=== PATIENT | male | born 1960 | race African-American/Black ===

== ENCOUNTER 2019-05-14 10:22 | Emergency (ER) | payer MEDICAID ==
[~2019-05-14] VITALS: Ht 170.2 cm; Wt 68.0 kg
[2019-05-14 11:57] LABS: HEMATOCRIT. 22.4 % (42.0-52.0); HEMOGLOBIN. 7.4 g/dL (14.0-18.0); MEAN CORPUSCULAR HEMOGLOBIN 24.8 pg (28.0-32.0); MEAN CORPUSCULAR VOLUME 75.2 fL (80.0-94.0); MEAN PLATELET VOLUME 10.7 fl (7.4-10.4); PLATELET 148 x1000/uL (130-400); RED BLOOD CELL COUNT 2.98 mill/uL (4.7-6.1); RED CELL DISTRIBUTION WIDTH 14.7 % (11.6-14.6)
[2019-05-14 12:02] LABS: CLARITY URINE CLEAR (CLEAR); COLOR URINE YELLOW (YELLOW); KETONES URINE NEGATIVE (NEGATIVE); LEUKOCYTE ESTERASE URINE NEGATIVE (NEGATIVE); NITRITE URINE NEGATIVE (NEGATIVE); OCCULT BLOOD URINE NEGATIVE (NEGATIVE); PROTEIN URINE TRACE (NEGATIVE); SPECIFIC GRAVITY URINE 1.007 (1.005-1.030); UROBILINOGEN URINE 0.2 E.U./dL (0.2-1.0)
[2019-05-14 12:34] LABS: PLATELET ESTIMATE NORMAL
[2019-05-14 13:49] LABS: TOTAL IRON BINDING CAPACITY 242 ug/dL (250-450)
[2019-05-14 13:53] VITALS: BP 133/62
== END 2019-05-14 14:06 | disposition home or self-care (01) ==
LOC: ER 10:22
DX: D50.9 Iron deficiency anemia, unspecified (principal); N18.4 Chronic kidney disease, stage 4 (severe); N28.9 Disorder of kidney and ureter, unspecified
CPT/HCPCS: 36415; 80048; 81003; 83540; 83550; 99283

== ENCOUNTER 2019-06-04 09:56 | Inpatient (IN) | payer MEDICAID ==
[2019-06-04] VITALS (9 sets, daily range): BP systolic 122–180; BP diastolic 66–83
[~2019-06-04] VITALS: Ht 170.2 cm; Wt 65.8 kg
[2019-06-04 10:53] LABS: BASOPHILS % 0.4 % (0.0-2.0); EOSINOPHILS % 1.8 % (0.0-5.0); HEMATOCRIT. 21.7 % (42.0-52.0); HEMOGLOBIN. 7.1 g/dL (14.0-18.0); LYMPHOCYTES % 24.9 % (20.0-50.0); MEAN CORPUSCULAR VOLUME 75.9 fL (80.0-94.0); MEAN PLATELET VOLUME 10.6 fl (7.4-10.4); MONOCYTES % 6.3 % (2.0-8.0); NEUTROPHILS % 66.6 % (40.0-76.0); PLATELET 136 x1000/uL (130-400); RED BLOOD CELL COUNT 2.86 mill/uL (4.7-6.1)
[2019-06-04 10:58] LABS: INR 1.1; PARTIAL THROMBOPLASTIN TIME 25.2 sec (23.4-31.0)
[2019-06-04 10:59] LABS: CHLORIDE 117 mEq/L (98-107)
[2019-06-04 11:19] LABS: PHOSPHORUS 4.8 mg/dL (2.5-4.9)
[2019-06-04 11:23] LABS: TOTAL IRON BINDING CAPACITY 226 ug/dL (250-450)
[2019-06-04] MEDS ORDERED: CALC667C MT (13:18)
[2019-06-04] MEDS ORDERED: FERR325T6 MT (13:18)
[2019-06-04] MEDS ORDERED: [UNRECOGNIZED DRUG - CODE] MC (13:22)
[2019-06-04] MEDS ORDERED: HYDR-4135 MT (13:22)
[2019-06-04] MEDS ORDERED: NIFE60TA64 MT (13:22)
[2019-06-04] MEDS ORDERED: HYDR12.529 MT (13:22)
[2019-06-04] MEDS ORDERED: ALLO100T MT (13:22)
[2019-06-04] MEDS ORDERED: ATOR10TA69 MT (13:22)
[2019-06-04] MEDS ORDERED: DOCU100T MT (13:22)
[2019-06-04] MEDS ORDERED: BENA20TA10 MT (13:22)
[2019-06-04] MEDS ORDERED: CHOL100044 MT (13:22)
[2019-06-04] MEDS ORDERED: CLONIDINE 0.1MG TABLET PO PRN (16:45)
[2019-06-04] MEDS ORDERED: ONDANSETRON HCL 4MG/2ML INJ IV PRN (16:45)
[2019-06-04] MEDS ORDERED: DOCUSATE SODIUM 100MG CAPSULE PO PRN (16:45)
[2019-06-04] MEDS ORDERED: HYDROCODONE/ACETAMINOPHEN 5/325MG TABLET PO PRN (16:45)
[2019-06-04] MEDS ORDERED: MORPHINE SULFATE 2 MG/ML CPJ (NOT FOR IM USE) IV PRN (16:45)
[2019-06-04] MEDS ORDERED: MAGNESIUM/ALUMINUM HYDROXIDE/SIMETHICONE 30ML UDC PO PRN (16:45)
[2019-06-04] MEDS ORDERED: DIPHENHYDRAMINE 50MG/ML VIAL IV PRN (16:45)
[2019-06-04] MEDS ORDERED: GUAIFENESIN 200MG/10ML SUGAR FREE UDC PO PRN (16:45)
[2019-06-04] MEDS ORDERED: IPRATROPIUM/ALBUTEROL 0.5-3(2.5)MG/3ML NEB HHN PRN (16:45)
[2019-06-04] MEDS ORDERED: ACETAMINOPHEN 325MG TABLET PO PRN (16:45)
[2019-06-04] MEDS ORDERED: LORAZEPAM 2MG/ML CPJ IV PRN (16:45)
[2019-06-04] MEDS ORDERED: EPOETIN ALFA 4000UNITS/ML VIAL SUBCUT NR (21:00)
[2019-06-05] VITALS: BP 108/69
[2019-06-05] MEDS: IRON SUCROSE COMPLEX 100 MG/5 ML ML IV SCH ×2 (00:21→17:08)
[2019-06-05 00:47] LABS: CLARITY URINE CLEAR (CLEAR); COLOR URINE YELLOW (YELLOW); KETONES URINE NEGATIVE (NEGATIVE); LEUKOCYTE ESTERASE URINE NEGATIVE (NEGATIVE); NITRITE URINE NEGATIVE (NEGATIVE); OCCULT BLOOD URINE NEGATIVE (NEGATIVE); PROTEIN URINE 1+ (NEGATIVE); SPECIFIC GRAVITY URINE 1.009 (1.005-1.030); UROBILINOGEN URINE 0.2 E.U./dL (0.2-1.0)
[2019-06-05 04:00] VITALS: BP 126/69
[2019-06-05] MEDS: SODIUM CHLORIDE 0.9% INJ 3ML FLUSH IVF SCH ×3 (05:00→14:00)
[2019-06-05 07:47] LABS: HEMATOCRIT 22.7 % (42.0-52.0); HEMOGLOBIN 7.4 g/dL (14.0-18.0); MEAN CORPUSCULAR HEMOGLOBIN 25.9 pg (28.0-32.0); MEAN CORPUSCULAR VOLUME 79.4 fL (80.0-94.0); PLATELET 129 x1000/uL (130-400); RED BLOOD CELL COUNT 2.86 mill/uL (4.7-6.1); RED CELL DISTRIBUTION WIDTH 16.8 % (11.6-14.6)
[2019-06-05 08:00] VITALS: BP 126/76
[2019-06-05 12:00] VITALS: BP 143/63
[2019-06-05 16:00] VITALS: BP 110/78
[2019-06-05] MEDS ORDERED: CITRIC ACID/SODIUM CITRATE SOLN 15ML UDC PO PRN (16:00)
[2019-06-05] MEDS ORDERED: CITRIC ACID/SODIUM CITRATE SOLN 15ML UDC PO SCH (17:00)
[2019-06-05 20:00] VITALS: BP 152/72
[2019-06-05] MEDS ORDERED: EPOETIN ALFA 4000UNITS/ML VIAL SUBCUT NR (21:00)
[2019-06-06] VITALS: BP 153/68
[2019-06-06 04:00] VITALS: BP 124/68
[2019-06-06] MEDS ORDERED: HYDRALAZINE HCL 50MG TABLET PO SCH (06:00)
[2019-06-06] MEDS: SODIUM CHLORIDE 0.9% INJ 3ML FLUSH IVF SCH (06:29)
[2019-06-06 08:00] VITALS: BP 117/57
[2019-06-06 08:09] LABS: *CREATININE RANDOM URINE 54.6 mg/dL (Not Estab.); MICROALBUMIN RANDOM URINE 58.8 ug/mL (Not Estab.)
[2019-06-06 11:41] VITALS: BP 126/61
[2019-06-06] MEDS ORDERED: EPOETIN ALFA 10000UNITS/ML VIAL SUBCUT NR ×2 (12:30→21:00)
[2019-06-06 12:43] VITALS: BP 126/61
[2019-06-06] MEDS ORDERED: IRON SUCROSE COMPLEX 100 MG/5 ML ML IV SCH (12:45)
== END 2019-06-06 13:37 | disposition home or self-care (01) | DRG 470 ==
LOC: ER 09:56 → EDBEDREQSVC 11:45 → 6EST 11:45 → EDBEDREQ 11:49 → EDBEDREQTM 11:50 → ENRESERV 12:22
PROVIDERS: ADMIT Internal Medicine; ATTEND Internal Medicine
PROC: 30233N1 Transfusion of Nonautologous Red Blood Cells into Peripheral Vein, Percutaneous Approach (ICD-10-PCS; principal; 2019-06-04)
DX: I12.0 Hypertensive chronic kidney disease with stage 5 chronic kidney disease or end stage renal disease (principal); E87.2 Acidosis; N18.5 Chronic kidney disease, stage 5; D63.8 Anemia in other chronic diseases classified elsewhere; Z79.899 Other long term (current) drug therapy
CPT/HCPCS: 36415; 71045; 76770; 81003; 82043; 82270; 82570; 83540; 83550; 83735; 84100; 84484; 85027; 86850; 86900; 86920; 93005; 93970; 96374; 99285; J0885; P9016